=== PATIENT | male | born 1950 | race Caucasian/White ===

== ENCOUNTER 2017-09-03 13:13 | Emergency (ER) | payer BC, OTHER ==
[2017-09-03 13:41] VITALS: TEMP 98.1; BMI 28.2
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
[2017-09-03 15:40] LABS: BASOPHIL 1.3 % (0-2.0); EOSINOPHIL 0.9 % (0-4.5); MCH 31.6 pg (25.7-33.7); MCHC 33.2 g/dl (32.0-35.9); MEAN CELL VOLUME 95.1 fl (80-96); MEAN PLT VOLUME 8.7 fl (7.5-11.1); NEUTROPHILS 75.3 % (42.8-82.8); PLATELET COUNT 200 K/MM3 (134-434); RDW 12.2 % (11.9-15.9); WHITE BLOOD COUNT 10.3 K/mm3 (4.0-10.8)
[2017-09-03 15:58] LABS: ALBUMIN 3.9 g/dl (3.5-5.0); ALK PHOS 62 U/L (32-92); ANION GAP 7 (8-16); BILIRUBIN,TOTAL 1.2 mg/dl (0.2-1.0); CALCIUM 9.3 mg/dl (8.4-10.2); CO2 25 mmol/L (22-28); CREATININE 0.9 mg/dl (0.6-1.3); GLUCOSE,RANDOM 110 mg/dl (74-106); SGOT/AST 22 U/L (10-42); SGPT/ALT 18 U/L (10-40); TOT PROT 6.6 g/dl (6.4-8.3)
[2017-09-03 16:22] LABS: TROPONIN I 1.86 ng/ml (0.00-0.05)
[2017-09-03] MEDS ORDERED: ASPIRIN 325 MG TABLET PO ONE (16:25)
[2017-09-03] MEDS ORDERED: ASPIRIN 81 MG CHEWABLE TABLETS ONE (16:26)
[2017-09-03] MEDS ORDERED: NITROGLYCERIN 2% OINTMENT - 1GM PACKET TD ONE ×2 (16:44)
[2017-09-03] MEDS ORDERED: ATORVASTATIN CA 80 MG TABLET (FP) PO ONE (17:05)
[2017-09-03 17:11] LABS: PH,URINE 6.5 (4.5-8); URINE APPEARANCE Clear; URINE BILIRUBIN Negative (NEGATIVE); URINE BLOOD Negative (NEGATIVE); URINE COLOR YELLOW; URINE GLUCOSE (UA) Negative (NEGATIVE); URINE KETONE Negative (NEGATIVE); URINE LEUK ESTERASE Negative (NEGATIVE); URINE NITRITE Negative (NEGATIVE); URINE PROTEIN Negative (NEGATIVE); URINE UROBILINOGEN 0.2 (0.2-1.0)
[2017-09-03] MEDS ORDERED: ATORVASTATIN CA 80 MG TABLET (FP) ONE (17:14)
[2017-09-03 17:28] LABS: ACTIVATED PTT 24.6 SECONDS (24.0-38.9)
--- NOTE | 2017-09-03 17:32 | CONSULT ---
Consult - text type - Consultation Consultation Note: CARDIOLOGY ASKED BY DR. Hathaway TO SEE PT. 67 YO MAN LEFT SHOULDER PAIN. PT SEEN, EXAMINRD ECG REVIEWED. WORKING DX: NON Q WAVE MYOCARDIAL INFARCTION. ECG UNREMARKABLE DUE TO ATHEROSCLEROTIC HEART DISEASE R/O CIRCUMFLEX LESION DIFF DX:MUSCULOSKELETAL PAIN FALSE POSITIVE TROPONIN HIGHLY DOUBT AORTIC DISSECTION. REC: IV NTG BETA BLOCKERS/UNFRACTIONATED HEPARIN/PLAVIX/HIGH DOSE STATINS TRANSFER TO [facility] DIRECTED BY ER PHYSICIAN. DX, PROGNOSIS, RISKS, OPTIONS ALTERNATIVES EXPLAINED. ALL QUESTIONS ANSWERED. THANKS. FULL NOTE DICTATED. FAMILY KEPT INFORMED.
[2017-09-03 17:33] LABS: INR 0.93 (0.82-1.09); PROTHROMBIN TIME (PATIENT) 10.4 SEC (10.2-13.0)
[2017-09-03] MEDS ORDERED: NITROGLYCERIN SUBLINGUAL 1/150 0.4 MG TAB SL ONE (17:42)
[2017-09-03] MEDS ORDERED: NITROGLYCERIN SUBLINGUAL 1/150 0.4 MG TAB ONE (17:47)
[2017-09-03 18:04] VITALS: BP 174/111; PULSE 81
[2017-09-03] MEDS ORDERED: HEPARIN INFUSION - 25,000 UNITS/500 ML INFUS.BAG IVPB ONE (18:22)
[2017-09-03] MEDS ORDERED: HEPARIN NA (PORCINE) 5,000 UNITS/ML 1ML VIAL IVPUSH PRN (18:23)
[2017-09-03] MEDS ORDERED: CLOPIDOGREL BISULFATE 300 MG TABLET PO ONE ×2 (18:24→18:41)
[2017-09-03] MEDS ORDERED: HEPARIN NA (PORCINE) 5,000 UNITS/ML 1ML VIAL ONE (18:24)
[2017-09-03] MEDS ORDERED: CLOPIDOGREL BISULFATE 300 MG TABLET ONE ×2 (18:25→18:40)
[2017-09-03] MEDS ORDERED: HEPARIN INFUSION - 25,000 UNITS/500 ML INFUS.BAG IVPB SCH (18:30)
--- NOTE | 2017-09-04 08:30 | CONS ---
DATE OF CONSULTATION: 09/03/2017 REQUESTING PHYSICIAN: India Eddy MD PATIENT PROFILE: The patient is a 67-year-old man seen on September 03, 2017, because of left shoulder pain. The patient has no known heart disease. There is no history of a myocardial infarction, angina, or congestive heart failure. Epigastric discomfort led to a stress test "many years ago," which was reportedly normal; the details are not available. 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 He tried massage, but it did not go away and he came to the emergency room because of persistent left shoulder pain. He never had chest pain, shortness of breath, diaphoresis, nausea, or vomiting. In the emergency room, the electrocardiogram was unremarkable, but a troponin level was elevated at 1.8. Since being seen in the emergency room, his symptoms have abated. He presently has no symptoms. There is a prior history of hypertension and hyperlipidemia, both of which did not require medical intervention. There is no history of diabetes. He does not smoke. MEDICATIONS: None. ALLERGIES: None. FAMILY HISTORY: His father of colon cancer. His mother of a stroke at age 76. PRIOR MEDICAL HISTORY: Detached retina requiring surgical intervention about 2 months prior to presentation. REVIEW OF SYSTEMS: General: No fever or chills. Gastrointestinal: No melena, no vomiting. Pulmonary: No hemoptysis. Neurologic: No focal deficit. PHYSICAL EXAMINATION: General: The patient appears well, in no distress, lying flat. Vital Signs: Temperature is afebrile, blood pressure is 190/98, respiratory rate is 16 per minute, oxygen saturation is 98% on ambient air, heart rate is 85 per minute and regular. Neck: There is no neck vein distention. There is no carotid bruit. Cardiovascular: The pulses are +2 throughout and equal bilaterally. The heart sounds are normal. No murmur, rub, or gallop is detected. The PMI is normal and not displaced. Abdomen: Soft and nontender. There is no organ enlargement. There is no abdominal bruit. Extremities: There is no peripheral edema. Neurologic: There is no focal neurological deficit. DATABASE: The electrocardiogram demonstrates sinus rhythm, left axis deviation. There is minimal ST-depression in lead V2 on the initial electrocardiogram. There are no acute ST or T-wave changes seen. Prior tracings are not available for comparison. The white blood cell count is 10.3, hematocrit 45%, platelet count of 200,000. The INR is 0.9. The electrolytes are normal, glucose is 110. The troponin level is 1.8. The urinalysis is negative for protein and glucose. The chest x-ray is a PA and lateral projection. There is no infiltrate, effusion, or pulmonary venous congestion. There is no mediastinal widening. IMPRESSION: The working diagnosis is a non-Q-wave myocardial infarction secondary to atherosclerotic heart disease. In light of the unimpressive electrocardiographic findings, concern exists for a left circumflex stenosis with resultant acute coronary ischemic syndrome. The patient does have risk factors for the development of atherosclerotic disease, including severe hypertension, at least at this time, and a prior history of hyperlipidemia. The differential diagnosis would include musculoskeletal pain with a false-positive elevation of the troponin level. The possibility of an aortic dissection would appear to be remote, given the clinical history and emergency room course. I have recommended the followin. Unfractionated heparin, intravenous nitroglycerin, beta blockers, high-dose statin therapy, Plavix, aspirin. 2. Risk factor modification with attention to addressing hypertension and hyperlipidemia. 3. Immediate transfer to a tertiary care center for further evaluation; specifically, coronary arteriography. 4. Await CT scan examination to rule out the remote possibility of an aortic dissection. Thank you for allowing me to take part in the care of this pleasant patient. The diagnosis, prognosis, risks, and options were explained at length to both the patient and family and all questions answered. TRES OSORIO M.D. [id number] CC: MD India Baker MD
--- NOTE | 2017-09-04 17:44 | EKG ---
Test Reason : Blood Pressure : / mmHG Vent. Rate : 072 BPM Atrial Rate : 072 BPM P-R Int : 140 ms QRS Dur : 100 ms QT Int : 376 ms P-R-T Axes : 028 -31 -01 degrees QTc Int : 411 ms SINUS RHYTHM NONSPECIFIC T WAVE ABNORMALITY LEFT AXIS DEVIATION NO PREVIOUS ECGS AVAILABLE Confirmed by JASON BIRCH MD ([id number]) on 09/04/2017 5:44:13 PM Referred By: KEN Confirmed By:JASON BIRCH MD
== END 2017-09-03 18:57 | disposition short-term general hospital (02) ==
LOC: FER 13:13
PROC: 3E033GC Introduction of Other Therapeutic Substance into Peripheral Vein, Percutaneous Approach (ICD-10-PCS; principal; 2017-09-03)
DX: I21.3 ST elevation (STEMI) myocardial infarction of unspecified site (principal); J45.909 Unspecified asthma, uncomplicated
CPT/HCPCS: 36415; 71020-TC; 71275-TC; 80053; 81003; 82272; 84484; 85025; 85610; 85730; 86850; 86900; 86901; 93005; 99285-25; J1644

== ENCOUNTER 2018-04-26 11:48 | Emergency (ER) | payer OTHER, BC ==
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
[2018-04-26 12:04] VITALS: BP 140/86; PULSE 58; TEMP 97.7; BMI 27.8
== END 2018-04-26 13:27 | disposition home or self-care (01) ==
LOC: FER 11:48
PROC: 0HQ1XZZ Repair Face Skin, External Approach (ICD-10-PCS; principal; 2018-04-26)
DX: S01.81XA Laceration without foreign body of other part of head, initial encounter (principal); W22.8XXA Striking against or struck by other objects, initial encounter; Y93.9 Activity, unspecified; Y92.9 Unspecified place or not applicable; Y99.0 Civilian activity done for income or pay; I25.2 Old myocardial infarction; Z95.5 Presence of coronary angioplasty implant and graft; Z79.82 Long term (current) use of aspirin
CPT/HCPCS: 99282-25

== ENCOUNTER 2018-05-04 16:56 | Emergency (ER) | payer OTHER, BC ==
--- NOTE | 2018-05-04 17:04 | PDOC ---
Suture Removal/Wound Check HPI - History of Present Illness Chief Complaint: Suture/Staple Removal (other) Stated Complaint: SUTURE REMOVAL Time Seen by Provider: 05/04/18 17:02 History Source: Yes: Patient Exam Limitations: Yes: No Limitations Treated at: [facility] ED Date of Last ED visit: 04/26/18 - Previous ED Treatment Type of procedure performed on last visit: Yes: Laceration Repair - Onset of Previous Treatment Comment:: 67 yo M presents for suture removal following repair 8 days ago in this ED. No redness, fever, drainage from the wound. Past History - Past Medical History Allergies/Adverse Reactions: Allergies Allergy/AdvReac Type Severity Reaction Status Date / Time No Known Allergies Allergy Verified 05/04/18 16:57 Home Medications: Ambulatory Orders Aspirin [ASA -] 81 mg PO DAILY 04/26/18 Carvedilol [Coreg -] 3.125 mg PO BID 04/26/18 Cephalexin Monohydrate [Keflex -] 500 mg PO Q6H #20 capsule 04/26/18 Lisinopril 1 tab PO DAILY 04/26/18 Ticagrelor [Brilinta] 90 mg PO DAILY 04/26/18 Anemia: No Asthma: Yes Cancer: No Cardiac Disorders: No CVA: No COPD: No CHF: No DVT: No Dementia: No Diabetes: No GI Disorders: Yes (COLONIC POLYPS) Disorders: No HTN: No Hypercholesterolemia: No Liver Disease: No Seizures: No Thyroid Disease: No - Surgical History Abdominal Surgery: No Appendectomy: No Cardiac Surgery: No Cholecystectomy: No Lung Surgery: No Neurologic Surgery: No Orthopedic Surgery: No - Immunization History Immunization Up to Date: Yes - Suicide/Smoking/Psychosocial Hx Smoking History: Never smoked Have you smoked in the past 12 months: No Hx Alcohol Use: Yes (RARE) Drug/Substance Use Hx: No Substance Use Type: Alcohol Hx Substance Use Treatment: No *Review of Systems - Review of Systems Able to Perform ROS?: Yes Comments:: GENERAL/CONSTITUTIONAL: No fever or chills. No weakness. HEAD, EYES, EARS, NOSE AND THROAT: No change in vision. No ear pain or discharge. No sore throat. SKIN: No rash NEUROLOGIC: No headache, vertigo, loss of consciousness, or change in strength/ sensation. HEMATOLOGIC/LYMPHATIC: No anemia, easy bleeding, or history of blood clots. ALLERGIC/IMMUNOLOGIC: No hives or skin allergy. *Physical Exam - Physical Exam Comments: GENERAL: Awake, alert, and fully oriented, in no acute distress HEAD: +Healing laceration to R forehead. EYES: PERRLA, EOMI, sclera anicteric, conjunctiva clear ENT: Auricles normal inspection, hearing grossly normal, nares patent, oropharynx clear without exudates. Moist mucosa NEUROLOGICAL: Cranial nerves II through XII grossly intact. Normal speech, normal gait SKIN: Warm, Dry, normal turgor, no rashes. Laceration as noted above, 5 sutures intact. Medical Decision Making - Medical Decision Making 05/04/18 17:16 Five sutures removed without any complications. Wound is healing well. Steri- strips placed. Counseled patient to take extra care with sun exposure, as that area may be more sensitive. *DC/Admit/Observation/Transfer Diagnosis at time of Disposition: Visit for suture removal - Discharge Dispostion Disposition: HOME Condition at time of disposition: Stable Decision to Admit order: No - Referrals - Patient Instructions Printed Discharge Instructions: DI for Suture Removal - Post Discharge Activity
[2018-05-04 17:06] VITALS: BP 121/71; PULSE 60; TEMP 98.5; BMI 27.6
== END 2018-05-04 17:18 | disposition home or self-care (01) ==
LOC: FER 16:56
DX: Z48.02 Encounter for removal of sutures (principal)
CPT/HCPCS: 99281-25

== ENCOUNTER 2018-11-15 07:00 | Day surgery (SDC) | payer OTHER, BC ==
[2018-11-13 14:21] VITALS: BMI 28.5
[2018-11-15] MEDS: TROPICAMIDE 1% OPHTH SOLN 15 ML BOTTLE ONE ×3 (07:25→07:35)
[2018-11-15] MEDS: CYCLOPENTOLATE 2% OPHTH SOLN 2 ML BOTTLE ONE ×3 (07:25→07:35)
[2018-11-15] MEDS: CIPROFLOXACIN 0.3% EYE DROPS 5 ML BOTTLE ONE ×3 (07:25→07:35)
[2018-11-15] MEDS: PHENYLEPHRINE 2.5% OPHTH SOLN 15 ML BOTTLE ONE ×3 (07:25→07:35)
[2018-11-15] MEDS ORDERED: MIDAZOLAM HCL 2 MG/2 ML SINGLE DOSE VIAL ONE (08:19)
[2018-11-15] MEDS ORDERED: LIDOCAINE 1% P/F 10 MG/ML VIAL ONE (08:42)
[2018-11-15] MEDS ORDERED: BSS (NA/CA/MG/K) BALANCED SALT SOLUTION OPHTH SOLN 15 ML BOTTLE ONE (08:42)
[2018-11-15] MEDS ORDERED: CARBACHOL 0.01% INTRA-OCULAR 1.5 ML VIAL ONE (08:42)
--- NOTE | 2018-11-15 09:45 | OP ---
DATE OF OPERATION: 11/15/2018 OPERATIVE PROCEDURE: Lens Phacoemulsification with Posterior Chamber Intraocular Lens Placement Left Eye PREOPERATIVE DIAGNOSIS: Visually Significant Cataract of Left Eye POSTOPERATIVE DIAGNOSIS: Visually Significant Cataract of Left Eye SURGEON: Salvador Arredondo M.D. ANESTHESIA: MAC PROCEDURE: The patient was brought to the operating room and placed under monitored anesthesia care by Anesthesia. A drop of Tetracaine was then placed over the left eye. The patient was then prepped and draped in the usual sterile manner. A speculum was then placed over the left eye. The eye was then well irrigated with copious amounts of BSS (balanced salt solution). The operating microscope was then moved into position. A paracentesis was performed using a 15 degree blade. At this point 0.5 mL of 1% preservative-free lidocaine was injected into the anterior chamber. Amvisc plus was then injected into the anterior chamber. A clear corneal incision was then formed using a 2.2 mm keratome. A capsulorrhexis was then performed in a continuous circular fashion beginning with a cystotome, completed with an Utratas forceps. Hydrodissection was then performed using BSS on a cannula. The phaco probe was then introduced through the corneal wound and the cataract was removed using the phaco chop technique. Approximately 3 seconds of absolute phaco time was used. The remaining cortex was then removed using irrigation and aspiration with an I/A probe. The capsule was then filled with regular Amvisc and the capsule was noted to be intact. A previously selected foldable posterior chamber intraocular lens was then injected into the capsule through the corneal wound using a lens injector. It was then dialed into position using a Sinskey hook. The Amvisc was then removed using irrigation and aspiration. Miostat was then injected through the paracentesis to constrict the pupil. The paracentesis and corneal wound were then hydrated and noted to be water tight. A drop of Maxitrol was then placed over the eye. The speculum was removed and clear shield was taped over the eye. The patient tolerated the procedure well and there were no surgical complications. The patient was asked to follow up in my office the next day. SALVADOR ARREDONDO M.D. SUKHJINDER/[id number]
[2018-11-15 10:50] VITALS: TEMP 98
[2018-11-15 10:51] VITALS: BP 120/81; PULSE 62
[2018-11-15] MEDS ORDERED: ONDANSETRON 4 MG/2 ML VIAL IVPUSH PRN (11:52)
[2018-11-15] MEDS ORDERED: ACETAMINOPHEN 325 MG TABLET (FP) PO PRN (11:52)
[2018-11-15] MEDS ORDERED: LACTATED RINGERS SOLUTION 1,000 ML IV SCH (12:00)
== END 2018-11-15 10:15 | disposition home or self-care (01) ==
LOC: FASU 07:00
PROVIDERS: ATTEND Ophthalmology
PROC: 08RK3JZ Replacement of Left Lens with Synthetic Substitute, Percutaneous Approach (ICD-10-PCS; principal; 2018-11-15 09:04)
DX: H26.8 Other specified cataract (principal)

== ENCOUNTER 2019-07-12 07:53 | Day surgery (SDC) | payer OTHER, BC ==
[2019-07-11 13:19] VITALS: BMI 28.0
[2019-07-12 08:03] VITALS: TEMP 97.9
[2019-07-12] MEDS ORDERED: PROPOFOL 20 ML ONE ×3 (08:12→08:27)
[2019-07-12 09:59] VITALS: BP 88/66; PULSE 64
== END 2019-07-12 10:20 | disposition home or self-care (01) ==
LOC: FASU-ENDO 07:53
PROVIDERS: ATTEND Internal Medicine Gastroenterology
PROC: 0DBK8ZX Excision of Ascending Colon, Via Natural or Artificial Opening Endoscopic, Diagnostic (ICD-10-PCS; principal; 2019-07-12 08:58)
DX: Z86.011 Personal history of benign neoplasm of the brain (principal); Z80.0 Family history of malignant neoplasm of digestive organs; D12.2 Benign neoplasm of ascending colon

== ENCOUNTER 2021-09-24 07:39 | Day surgery (SDC) | payer OTHER, BC ==
[2021-09-22 15:08] VITALS: BMI 28.5
[2021-09-24 09:17] VITALS: BP 111/66; PULSE 88; TEMP 98
== END 2021-09-24 09:30 | disposition home or self-care (01) ==
LOC: FASU-ENDO 07:39
PROVIDERS: ATTEND Internal Medicine Gastroenterology
PROC: 0DB98ZX Excision of Duodenum, Via Natural or Artificial Opening Endoscopic, Diagnostic (ICD-10-PCS; principal; 2021-09-24)
PROC: 0DB68ZX Excision of Stomach, Via Natural or Artificial Opening Endoscopic, Diagnostic (ICD-10-PCS; 2021-09-24)
PROC: 0DB38ZX Excision of Lower Esophagus, Via Natural or Artificial Opening Endoscopic, Diagnostic (ICD-10-PCS; 2021-09-24)
DX: K29.50 Unspecified chronic gastritis without bleeding (principal); K44.9 Diaphragmatic hernia without obstruction or gangrene; B96.81 Helicobacter pylori [H. pylori] as the cause of diseases classified elsewhere; K22.70 Barrett's esophagus without dysplasia; K21.00 Gastro-esophageal reflux disease with esophagitis, without bleeding
CPT/HCPCS: 88305-TC; 88342-TC